=== PATIENT | female | born 1940 | race Hispanic/Latino ===

== ENCOUNTER 2019-04-10 11:23 | Emergency (ER) | payer OTHER ==
[2019-04-10] MEDS ORDERED: IPRATROPIUM/ALBUTEROL SULFATE 3 ML SOLUTION IH ONE (12:47)
[2019-04-10 12:53] LABS: BASOPHILS % (AUTO) 0.9 % (0.0-5.0); EOSINOPHILS % (AUTO) 0.2 % (0.0-8.0); HEMATOCRIT 42.2 % (36-48); LYMPHOCYTES % (AUTO) 29.2 % (21.0-51.0); MEAN CORPUSCULAR HEMOGLOBIN 27.5 pg (27.0-33.0); MEAN CORPUSCULAR HGB CONC 31.5 g/dL (32.0-36.0); MEAN CORPUSCULAR VOLUME 87.4 fL (79-99); MONOCYTES % (AUTO) 13.8 % (3.0-13.0); NEUTROPHILS % (AUTO) 55.5 % (40.0-77.0); PLATELET COUNT (AUTO) 171 K/uL (130-400); RED BLOOD CELL COUNT(AUTO) 4.83 MIL/uL (4.00-5.50); WHITE BLOOD COUNT (AUTO) 5.6 K/uL (4.8-10.8)
[2019-04-10 12:59] LABS: CARBON DIOXIDE 28 mmol/L (21-32); CHLORIDE 100 mmol/L (101-111); CREATININE 0.2 mg/dL (0.5-1.5); GLOMERULAR FILTR. RATE CALC 363 mL/min (>60); GLUCOSE,RANDOM 91 mg/dL (70-105); POTASSIUM 4.5 mmol/L (3.5-5.1); SODIUM SERUM 135 mmol/L (136-145); UREA NITROGEN, BLOOD 29 mg/dL (7-18)
[2019-04-10 13:02] LABS: INR 1.06 (0.85-1.15); PARTIAL THROMBOPLASTIN TIME 33.2 SEC (26.3-35.5); PROTHROMBIN TIME 11.1 SEC (9.6-11.6)
[2019-04-10 13:02] LABS: ABG BASE EXCESS -0.1 mmol/L (-2.0-3.0); ABG HCO3 24.3 mmol/L (21.0-28.0); ABG OXYGEN SATURATION 86.9 % (95.0-99.0); ABG PCO2 39 mmHg (32-45)
[2019-04-10 13:10] LABS: ALANINE AMINOTRANSFERASE 93 U/L (12-78); ALBUMIN 3.2 g/dL (3.5-5.0); ASPARTATE AMINOTRANSFERASE 147 U/L (10-37); BILIRUBIN,TOTAL 0.7 mg/dL (0.2-1.0); CREATINE KINASE, TOTAL 128 U/L (21-232); MYOGLOBIN 66 ng/mL (10-92); TOTAL PROTEIN, SERUM 8.3 g/dL (6.0-8.3); TROPONIN I < 0.04 ng/mL (0.00-0.06)
[2019-04-10] MEDS ORDERED: IOHEXOL 350 MG/ML 100ML INFUS..BTL IV ONE (14:30)
[2019-04-10] MEDS ORDERED: ACETAMINOPHEN EXTRA STRENGTH 500 MG TABLET ONE ×2 (15:17→15:18)
[2019-04-10] MEDS ORDERED: ALBUTEROL SULFATE 0.083% 2.5 MG/3 ML INH IH ONE (16:06)
[2019-04-10] MEDS ORDERED: LEVOFLOXACIN 500 MG/D5W 100 ML 100 ML ONE (16:17)
[2019-04-10] MEDS ORDERED: METHYLPREDNISOLONE SOD SUCC 125MG/2ML VIAL ONE (16:17)
[2019-04-10] MEDS ORDERED: OSELTAMIVIR PHOSPHATE 75 MG CAP ONE (18:32)
== END 2019-04-10 18:45 | disposition home or self-care (01) ==
LOC: EDH 11:23
DX: J20.9 Acute bronchitis, unspecified (principal); J10.1 Influenza due to other identified influenza virus with other respiratory manifestations; R09.02 Hypoxemia; I10 Essential (primary) hypertension; F32.9 Major depressive disorder, single episode, unspecified; Z90.710 Acquired absence of both cervix and uterus; Z90.49 Acquired absence of other specified parts of digestive tract
CPT/HCPCS: 36415; 36600; 71046; 71275; 80053; 82550; 82803; 83605; 83874; 84145; 84484; 85025; 85378; 85610; 85730; 87040 ×2; 87804 ×2; 93005; 94640 ×2; 96365; 96366; 96375; 99285; J1956; J2930; Q9967